=== PATIENT | male | born 1960 | race Asian ===

== ENCOUNTER 2016-11-25 11:44 | Day surgery (SDC) | payer OTHER ==
[~2016-11-25] VITALS: Ht 182.9 cm; Wt 96.0 kg
[~2016-11-25 11:44] MED LIST: CALC500T PO; CALC667T PO; CHOL500016 PO; CYAN100031 PO; FOLI0.8T3 PO; GLIP10TA13 PO; OMEG1CAP6 PO; PROP10TA PO; TRAM50TA PO; WARF5TAB7 PO
[2016-11-25] MEDS ORDERED: LIDOCAINE 1%/EPI 1:100,000 20 ML VIAL. ONE ×2 (12:07→15:02)
[2016-11-25 12:33] LABS: BASO % 1 % (0-3); EOS % 3 % (0-3); HEMATOCRIT 24.5 % (39.0-53.0); HEMOGLOBIN 8.8 g/dL (13.0-17.5); LYMPH # 1.1 x10^3/uL (1.0-4.8); LYMPH % 14 % (24-48); MEAN CORPUSCULAR HEMOGLOBIN 34 pg (25-35); MEAN CORPUSCULAR HGB CONC 36 g/dL (31-37); MEAN CORPUSCULAR VOLUME 95 fL (79-100); MONO % 9 % (0-9); NEUT % 73 % (31-73); PLATELET COUNT 313 x10^3/uL (140-400); RED BLOOD COUNT 2.58 x10^6/uL (4.30-5.70); RED CELL DISTRIBUTION WIDTH 17.9 % (11.5-14.5); WHITE BLOOD COUNT 7.5 x10^3/uL (4.0-11.0)
[2016-11-25 12:55] LABS: CALCIUM 8.4 mg/dL (8.5-10.1); CREATININE 11.5 mg/dL (0.7-1.3); GFR 4.6; POTASSIUM 4.4 mmol/L (3.5-5.1)
[2016-11-25] MEDS ORDERED: IV RINGERS,LACTATED 1000ML 1,000 ML IV SCH (12:56)
[2016-11-25 12:59] LABS: INR 1.4 (0.8-1.1); PROTHROMBIN TIME PATIENT 16.4 SEC (11.7-14.0)
[2016-11-25] MEDS ORDERED: PROCHLORPERAZINE 10 MG/2 ML VIAL. IV PRN (13:00)
[2016-11-25] MEDS ORDERED: fentaNYL PF VIAL 100 MCG/2 ML VIAL IV PRN ×2 (13:00)
[2016-11-25] MEDS ORDERED: ONDANSETRON PF 4 MG/2 ML VIAL. IV PRN (13:00)
[2016-11-25] MEDS ORDERED: LIDOCAINE 1% 1 ML SYRINGE. ID PRN (13:00)
[2016-11-25] MEDS ORDERED: MORPHINE SULFATE 2 MG/ML DISP.SYRIN. IV PRN (13:00)
[2016-11-25] MEDS ORDERED: HYDROmorphone 2 MG/ML VIAL IV PRN (13:00)
[2016-11-25] MEDS ORDERED: PROPOFOL 20 ML IV ONE (13:43)
[2016-11-25] MEDS ORDERED: ONDANSETRON PF 4 MG/2 ML VIAL. ONE (13:43)
[2016-11-25] MEDS ORDERED: DEXAMETHASONE SOD PHOS 20 MG/5 ML VIAL. ONE (13:43)
[2016-11-25] MEDS ORDERED: LIDOCAINE 2% PF Vial for OR 5 ML VIAL. ONE (13:43)
[2016-11-25] MEDS ORDERED: DESFLURANE 31 TO 60 MINUTES IH ONE (13:43)
[2016-11-25] MEDS ORDERED: fentaNYL PF VIAL 100 MCG/2 ML VIAL ONE ×2 (13:44→15:55)
[2016-11-25] MEDS ORDERED: SUCCINYLCHOLINE 200 MG/10 ML VIAL. ONE (13:44)
[2016-11-25] MEDS ORDERED: ROCURONIUM 50 MG/5 ML VIAL. ONE (13:44)
[2016-11-25] MEDS ORDERED: BUPIVAC MPF-EPI 0.5%-1:200000 30 ML VIAL. ONE ×2 (14:32→15:02)
[2016-11-25] MEDS ORDERED: CHLORHEXIDINE 0.12% 15 ML MOUTHWASH. SWSP ONE (15:00)
[2016-11-25] MEDS ORDERED: GELATIN SPONGE SIZE 100. ONE (15:02)
[2016-11-25] MEDS ORDERED: NEOSTIGMINE 10 MG/10 ML VIAL. ONE (16:06)
[2016-11-25] MEDS ORDERED: GLYCOPYRROLATE 1 MG/5 ML VIAL. ONE (16:06)
--- NOTE | 2016-11-25 16:44 | PDOC ---
BRIEF OPERATIVE NOTE Date: November 25, 2016 Pre-Op Diagnosis Cirrhosis non restorable dentition Post-Op Diagnosis same Procedure Performed surgical extraction of all teeth and UR, UL, LL, LR quadrants alveoloplasty Surgeon Cheryl Knox Professor Of Political Science Nando Anesthesiologist Tito Anesthesia Type: General Blood Loss 50 IV Fluid 1 L Urine Output no mac Specimens Obtained teeth disposed of in biohazard Findings see dictation Complications none noted at time of surgery Additional Remarks none FIONA KNOX DMD November 25, 2016 16:44
--- NOTE | 2016-11-25 16:51 | DISCH ---
DISCHARGE INSTRUCTIONS Condition on Discharge Condition on Discharge: Stable Activity After Discharge Activity Instructions for Disc: Activity as tolerated Lifting Instructions after Dis: No heavy lifting Driving Instructions after Dis: Do not drive today Weight Bearing Status after Di: No restrictions Diet after Discharge Diet after Discharge: Renal Dialysis, Full Liquid, Level II Dysph, Ground Diet Texture: Mechanically Altered Wound Incision Care Wound/Incision Care: Ice to area for comfort Other wound/incision instructi: bite on guaze 30-60 minutes as needed for bleeding Contacting the DRPriyanka after DC Call your doctor for: Bite on guaze for 30-60 minutes as needed to stop bleeding. Follow-Up Follow up with: Dr. Knox 1 week/if needed [phone] Follow Up With: [facility] 2-8 weeks Treatment/Equipment after DC Adaptive Equipment Issued: None FIONA KNOX DMD November 25, 2016 16:51
[2016-11-25] MEDS ORDERED: oxyCODONE/APAP 5/325 1 TAB TABLET PO ONE (17:15)
[2016-11-25 18:25] VITALS: BP 193/93
--- NOTE | 2016-11-25 21:20 | OP ---
DATE OF SURGERY: 11/25/2016 OPERATIVE SURGEON: Osmany Knox D.M.D. SERVICE: Oral Maxillofacial Surgery. ANESTHESIOLOGIST: Tito. BUSINESS UNIT CONTROLLER: Nando. 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 PROCEDURES PERFORMED: Surgical extraction of nonrestorable teeth numbers 2, 3, 5, 6, 7, 8, 14, 15, 16, 19, 20, 21, 22, 23, 24, 25, 26, 27, 28, 29, 30, 31, and 32 and 4 quadrants of alveoloplasty. BRIEF HISTORY: The patient is a 56-year-old gentleman who was referred to my clinic by the [place] dental service for extraction of all remaining nonrestorable and carious dentition in order to prepare him for potential liver transplantation. A full history and physical was performed and workup was performed and consent was obtained to plan for surgical extraction of these teeth in OR. Consent was planned for procedure and surgery was scheduled. DESCRIPTION OF PROCEDURE: Operative dictation of the history and physical was updated in the preoperative holding area. The patient was transported by the anesthesia service to the operative suite, placed in the supine position. Pads were placed in the pertinent areas. The patient was anesthetized and intubated with a nasal FELICITAS intubation without complication. The tube was secured. The patient was draped and anesthesia was administered. A throat pack was placed. A total of 44 mL of 0.5% Marcaine, 1:200,000 epinephrine mixed with 1% lidocaine, 1:100,000 epinephrine, this was administered half at the beginning and half at the culmination of the procedure, so again approximately 22 mL at the beginning and approximately 20 mL at the culmination of the procedure to assist with anesthesia and manipulation and comfort of the patient. After local anesthesia was administered, a throat pack was placed and secured. The surgery began in the upper right hand quadrant and the lower right hand quadrant. A 15 blade was used to elevate a full-thickness mucoperiosteal flap. The teeth were then luxated, elevated and extracted with hand instruments. Rongeur was employed to perform alveoloplasty in both upper right and lower right quadrants to satisfaction of digital manipulation and bone file was employed with copious normal sterile saline and curettage of the sites. Gelfoam was packed in each extraction site. The tissue was trimmed to appropriate form and closed with 3-0 chromic gut sutures in a running locked fashion. Attention was then directed to the left side of the face were a 15 blade was again employed to leave a full-thickness mucoperiosteal flap with assistance of a periosteal elevator. The teeth were then luxated, elevated and extracted without complication and alveoloplasty was then performed in the upper left and lower left quadrants with rongeur. Alveoplasty was performed to remove bony prominences and a bone file and curettage was employed with copious normal sterile saline irrigation. Gelfoam was placed in all extraction sites and 3-0 chromic gut suture was employed in a running locked fashion to assist in closure. This is the culmination of the procedure. The patient was hemostatic at this time. The oral cavity was lavaged and suctioned and the moistened throat pack was removed. An OG was passed and the stomach was decompressed and the patient was then returned to the care of anesthesia in a stable condition and transported to the PACU in stable condition. The extubation was performed without complication by the anesthesia service. OSMANY KNOX DMD DR: Merna JOB#: [id number] / [id number]
== END 2016-11-25 18:30 | disposition home or self-care (01) ==
LOC: SURG 11:44
PROVIDERS: ATTEND Dentist Oral and Maxillofacial Surgery
DX: K00.7 Teething syndrome (principal); K74.60 Unspecified cirrhosis of liver; E78.00 Pure hypercholesterolemia, unspecified; I48.91 Unspecified atrial fibrillation; E03.9 Hypothyroidism, unspecified; E11.22 Type 2 diabetes mellitus with diabetic chronic kidney disease; I12.0 Hypertensive chronic kidney disease with stage 5 chronic kidney disease or end stage renal disease; N18.6 End stage renal disease; Z99.2 Dependence on renal dialysis; D64.9 Anemia, unspecified; Z88.8 Allergy status to other drugs, medicaments and biological substances
CPT/HCPCS: 36415; 41874; 41899; 80048; 82962; 85027; 85610; 85730; J0330; J0690; J1100; J2405; J2704; J2710; J3010; J3490; J7120